=== PATIENT | male | born 1940 | race Caucasian/White ===

== ENCOUNTER 2017-04-19 07:27 | Day surgery (SDC) | payer MEDICARE ==
[~2017-04-19] VITALS: Ht 174 cm; Wt 142.2 kg
[~2017-04-19 07:27] MED LIST: ALEVE 220MG220 MG PO; CIPRO 500MG TA500 MG PO; FLOMAX 0.40.4 MG/CAP PO; LORTAB 5/500 501 TAB PO; NORCO 325 MG-51 TAB PO; PERCOCET 325 MG1 TA2 PO; PYRIDIUM 100MG100 MG PO; PYRIDIUM200 M1 PO; UROXATRAL10 M1 PO; ZOFRAN 4MG T4 MG/TAB PO
[2017-04-19 08:30] VITALS: BP 157/83; PULSE 79; TEMP 98
[2017-04-19] MEDS ORDERED: LANTUS100 U/ML SQ (08:35)
[2017-04-19] MEDS ORDERED: PRAVACHOL 40MG40 MG PO (08:36)
[2017-04-19] MEDS ORDERED: NEURONTIN300 MG/CAP PO (08:36)
[2017-04-19] MEDS ORDERED: AMARYL 2MG T2 MG/TAB PO (08:36)
[2017-04-19] MEDS ORDERED: COZAAR 50MG50 MG/TAB PO (08:37)
[2017-04-19 11:55] VITALS: BP 151/84; PULSE 72; TEMP 97.3
[2017-04-19 12:10] VITALS: BP 151/83; PULSE 68
[2017-04-19 12:20] VITALS: BP 137/67; PULSE 66
[2017-04-19 12:35] VITALS: BP 136/72; PULSE 64
[2017-04-19] MEDS ORDERED: PYRIDIUM 100MG100 MG PO (12:52)
[2017-04-19] MEDS ORDERED: NORCO2.5 PO (12:53)
== END 2017-04-19 14:11 | disposition home or self-care (01) ==
LOC: SDCO 07:27
DX: N20.2 Calculus of kidney with calculus of ureter (principal); K21.9 Gastro-esophageal reflux disease without esophagitis; I11.9 Hypertensive heart disease without heart failure; C80.1 Malignant (primary) neoplasm, unspecified; E11.9 Type 2 diabetes mellitus without complications; E78.5 Hyperlipidemia, unspecified; E66.9 Obesity, unspecified; C85.90 Non-Hodgkin lymphoma, unspecified, unspecified site; M10.9 Gout, unspecified; E78.00 Pure hypercholesterolemia, unspecified; Z96.653 Presence of artificial knee joint, bilateral; Z80.51 Family history of malignant neoplasm of kidney; Z82.49 Family history of ischemic heart disease and other diseases of the circulatory system; Z80.9 Family history of malignant neoplasm, unspecified; Z87.891 Personal history of nicotine dependence
CPT/HCPCS: C1769; C1894; C2617; J0690; J1885; J2405; J2704; J3010; J7030; Q9967

== ENCOUNTER → 2017-05-01 | Outpatient (CLI) | payer MEDICARE ==
[~2017-05-01] VITALS: Ht 170.2 cm; Wt 141.5 kg
[~2017-05-01] MED LIST changes: +AMARYL 2MG T2 MG/TAB PO; +COZAAR 50MG50 MG/TAB PO; +LANTUS100 U/ML SQ; +NEURONTIN300 MG/CAP PO; +NORCO2.5 PO; +PRAVACHOL 40MG40 MG PO
== END ==
LOC: SUN.DT 14:30
DX: E66.01 Morbid (severe) obesity due to excess calories (principal); Z68.42 Body mass index [BMI] 45.0-49.9, adult; Z71.3 Dietary counseling and surveillance

== ENCOUNTER → 2020-05-11 | Outpatient (CLI) | payer MEDICARE ==
[~2020-05-11] VITALS: Ht 170.2 cm; Wt 108.8 kg
[2020-05-11] VITALS (8 sets, daily range): BP systolic 117–151; BP diastolic 73–90; PULSE 77–92
--- NOTE | 2020-05-11 14:32 | NUR ---
pt to ct per wheelchair. Pt positioned in prone position on ct table. Monitors applied and O2 on at 2l/nc
--- NOTE | 2020-05-11 14:48 | NUR ---
Specimens obtained by Dr Lara and placed in formalin and RPMI respectively. Specimens labeled.
--- NOTE | 2020-05-11 15:30 | NUR ---
pt out to car per wheelchair. Denies pain at this time. Bandaid to site clean dry and intact. Pt up and into car without difficulty.
== END ==
LOC: COL.RAD 13:07
DX: C85.90 Non-Hodgkin lymphoma, unspecified, unspecified site (principal)
CPT/HCPCS: J2250; J3010

== ENCOUNTER → 2023-02-27 | Outpatient (CLI) | payer MEDICARE | LOC: COL.RAD 09:07 | DX: C82.03 Follicular lymphoma grade I, intra-abdominal lymph nodes (principal) | CPT/HCPCS: Q9967 ==